=== PATIENT | female | born 1985 ===

== ENCOUNTER 2020-04-15 09:25 | Emergency (ER) | payer OTHER, SELFPAY ==
[2020-04-15 09:36] VITALS: BP 136/83; PULSE 68; RESP 17; TEMP 36.7; O2SAT 99; BMI 36.8
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
== END 2020-04-15 10:20 | disposition home or self-care (01) ==
PROVIDERS: Emergency Provider Internal Medicine; PCP Internal Medicine
DX: S13.4XXA Sprain of ligaments of cervical spine, initial encounter (principal); M54.2 Cervicalgia; V43.52XA Car driver injured in collision with other type car in traffic accident, initial encounter; Y93.9 Activity, unspecified; Y92.410 Unspecified street and highway as the place of occurrence of the external cause; Z79.899 Other long term (current) drug therapy
CPT/HCPCS: 99283

== ENCOUNTER 2020-08-23 09:44 | Outpatient (REF) | payer OTHER, SELFPAY | END 2020-08-23 09:45 | disposition home or self-care (01) | LOC: HO.LAB 09:44 | PROVIDERS: Visit Provider Internal Medicine | DX: Z20.822 Contact with and (suspected) exposure to COVID-19 (principal) | CPT/HCPCS: 36415; C9803; U0003; U0005 ==

== ENCOUNTER 2020-10-01 23:22 | Emergency (ER) | payer OTHER, SELFPAY ==
--- NOTE | ~2020-10-01 | CT_ITS ---
EXAMINATION: CT ABDOMEN AND PELVIS WITHOUT CONTRAST CLINICAL INFORMATION: Right flank pain. COMPARISON: 04/03/2019. TECHNIQUE: Contiguous axial thin section helical images of the abdomen and pelvis were performed without oral or IV contrast. The data set was reformatted in the coronal and sagittal planes and reviewed on an independent workstation. DLP: 856 mGy-cm. FINDINGS: The visualized lung bases are clear. The visualized portions of the heart are unremarkable. The liver is of normal size and diffuse decreased attenuation without focal lesions nor intrahepatic biliary ductal dilation. Patient is status post cholecystectomy. Surgical clips are identified. Surgical chain sutures are noted in this patient status post gastric bypass. The spleen, pancreas, adrenal glands are unremarkable. Both kidneys are of normal size and attenuation. There is right grade 2-3 hydroureteronephrosis secondary to a 5 mm obstructive right UVJ calculus. There is also a 2 mm nonobstructive calculus within the lower pole of the right kidney and a 6 mm nonobstructive calculus within the upper pole of the right kidney. There is no abdominal free fluid. There is neither mesenteric nor retroperitoneal lymphadenopathy. Normal unopacified loops of small and large bowel are identified. There is no pelvic free fluid. The urinary bladder is unremarkable. There is neither pelvic nor inguinal lymphadenopathy. Bone windows: Neither sclerotic nor lytic bone lesions are identified. CT/CT abdomen pelvis wo con IMPRESSION: Right grade 2-3 hydroureteronephrosis secondary to a 5 mm obstructive right UVJ calculus. Additional nonobstructive right renal calculi are present. Hepatic steatosis. Automated exposure control (Care Dose) Adjustment of the mA and/or kv according to patient size (this includes techniques or standardized protocols for targeted exams where dose is matched to indication / reason for exam; i.e. extremities or head).
[2020-10-01 23:25] VITALS: BP 170/92; PULSE 73; RESP 18; TEMP 36.8; O2SAT 96; BMI 38.9
[2020-10-01 23:44] LABS: MANUAL DIFF FLAG NO
[2020-10-01 23:46] LABS: Basophils Percent Auto 0.3 % (0-2); Eosinophils Absolute Auto 0.1 X10*3/uL (0.0-0.4); Eosinophils Percent Auto 0.8 % (0-4); Hematocrit 37.2 % (37-47); Hemoglobin 12.3 g/dl (12.0-16.0); Imm Gran Abs Auto 0.05 X10*3/uL (0.00-0.03); Imm Gran Pct Auto 0.4 % (0.0-0.4); Lymphocytes Absolute Auto 3.7 X10*3/uL (1.2-4.9); Lymphocytes Percent Auto 31.1 % (20-40); Mean Corpuscular HGB Conc 33.1 g/dl (31.0-35.0); Mean Corpuscular Hemoglobin 27.8 pg (27.0-33.0); Mean Corpuscular Volume 84.2 fL (80-98); Monocytes Absolute Auto 0.6 X10*3/uL (0.1-1.2); Monocytes Percent Auto 5.1 % (2-11); Neutrophils Absolute Auto 7.3 X10*3/uL (2.0-8.3); Neutrophils Percent Auto 62.3 % (45-73); Platelet Count 246 X10*3/uL (160-400); Red Blood Count 4.42 X10*6/uL (4.20-5.50); Red Cell Distribution Width 12.8 % (11.0-16.0); White Blood Count 11.8 X10*3/uL (4.8-10.8)
[2020-10-01 23:50] LABS: Glucose Urine UA NEG (NEG); Leukocyte Esterase Urine NEG (NEG); Nitrite Urine NEG (NEG); PH 5.5 (5.0-8.0); Specific Gravity - Urine >= 1.030 (1.005-1.025); Urine Blood 3+ (NEG); Urine Ketones NEG (NEG); Urine Protein NEG (NEG-TRACE)
[2020-10-02] VITALS: PULSE 84; RESP 18; O2SAT 100
[2020-10-02] LABS: Appearance Urine CLEAR; Color Urine YELLOW
[2020-10-02 00:07] LABS: UPreg QC Valid YES; Urine Pregnancy NEGATIVE (NEGATIVE)
[2020-10-02 00:08] LABS: Bacteria Urine TRACE /LPF; Mucus Urine 1+ /LPF; RBC Urine 50-75 /HPF (0); Squamous Epithelial Cell Urine TRACE /LPF; WBC Urine 0-2 /HPF (0-4)
[2020-10-02 00:11] LABS: Alanine Aminotransferase 20 U/L (0-31); Albumin Level 4.1 g/dL (3.5-5.0); Alkaline Phosphatase 82 U/L (39-117); Anion Gap 14 (12-20); Aspartate Amino Transferase 16 U/L (5-31); Bilirubin Total 0.4 mg/dL (0.0-1.0); Blood Urea Nitrogen 15 mg/dL (9-16); Calcium 8.8 mg/dL (8.4-10.2); Carbon Dioxide 25 mmol/L (22-29); Chloride 105 mmol/L (96-108); Creatinine Clr Calc Pharmacy 110.5; Estimated Glomerular Filt Rate > 60; Glucose Random 97 mg/dL (60-115); Potassium 3.7 mmol/L (3.3-5.1); Sodium 140 mmol/L (135-145); Total Protein 7.1 g/dL (6.5-8.0)
--- NOTE | 2020-10-02 00:38 | ED_ITS ---
HPI - General Adult General Chief complaint: General Medical Stated complaint: back pain Time Seen by Provider: 10/02/20 00:17 Source: patient Mode of arrival: ambulatory History of Present Illness HPI narrative: This is a 34-year-old female with history ureterolithiasis who presents with 2 days of constant right flank pain that she states radiates down into the inguinal area and is associated with urinary frequency and some mild nausea. Otherwise, she denies fever, chills, vomiting, diarrhea or urinary pain/burning. She endorses that she was evaluated yesterday at [facility] but they told her that she did not have anything and discharge your. She states that the pain has persisted. Related Data Previous Rx's Medication Instructions Recorded acetaminophen [Tylenol Arthritis 650 mg PO Q8H PRN #30 tab 04/15/20 Pain] cyclobenzaprine 10 mg PO TID PRN #10 tab 04/15/20 lidocaine [Lidoderm] 1 patch TOPICAL DAILY #15 ea 04/15/20 ketorolac 10 mg PO Q6H PRN 5 Days tab 10/02/20 prednisone 20 mg PO DAILY #4 tab 10/02/20 tamsulosin [Flomax] 0.4 mg PO BEDTIME #4 cap 10/02/20 Allergies Allergy/AdvReac Type Severity Reaction Status Date / Time No Known Allergies Allergy Verified 10/01/20 23:25 [No Known Allergies*] Review of Systems Review of Systems: Pertinent positives and negatives as stated in HPI 10 point review of systems is otherwise negative. [facility] Past Medical History Source: nursing notes reviewed Medical History No known health problems Surgical History Gastric bypass status for obesity Social History Social History Alcohol intake: never Smoking Status: Former smoker Use of substances other than those prescribed or required for medical reasons: No Advance Directives: No Physical Exam Vital Signs: Vital Signs: Last Vital Signs Temp 97.3 F 10/02/20 02:00 Pulse 71 10/02/20 02:00 Resp 16 10/02/20 02:00 BP 146/91 H 10/02/20 02:00 Pulse Ox 97 10/02/20 02:00 Body Mass Index 38.9 VITAL SIGNS: Reviewed. GENERAL: Well developed, well nourished, in no acute distress. HEAD: Normocephalic/atraumatic NOSE: Nares patent bilateral OROPHARYNX: no oral lesions noted, posterior pharynx clear NECK: Supple, no adenopathy LUNGS: Normal breath sounds. No adventitious sounds or accessory muscle use. SpO2<96> CARDIOVASCULAR: Regular rate and rhythm without noted murmurs ABDOMEN: Soft, non-tender, non-distended with bowel sounds, no CVA tenderness NEUROLOGIC: Alert and oriented x 4. Course Course Course Narrative: This is a 34-year-old female with history and clinical presentation consistent with ureterolithiasis will evaluate for obstruction and discussed with patient the fact that she would be undergoing an additional exposure of radiation in order to further evaluate her symptoms. She understands and acknowledges the risks and benefits of obtaining a 2nd CT scan. On review of all investigations there is a mild leukocytosis with hematuria and CT scan finding consistent with right grade 2-3 hydro ureteral nephrosis and the findings of a 5 mm stone. Additional nonobstructive renal calculi are also p resent. On re-evaluation after combination analgesics patient reports good resolution of her pain and all results and findings were discussed with her at bedside. She knows that she will be discharged with additional medications to facilitate the passage of the stone and that she should follow-up with urology. Medical Decision Making Lab Data Result diagrams: 10/01/20 23:39 10/01/20 23:39 Labs: Lab Results 10/01/20 10/01/20 10/01/20 Range/Units 23:39 23:39 23:39 WBC 11.8 H (4.8-10.8) X10*3/uL RBC 4.42 (4.20-5.50) X10*6/uL Hgb 12.3 (12.0-16.0) g/dl Hct 37.2 (37-47) % MCV 84.2 (80-98) fL MCH 27.8 (27.0-33.0) pg MCHC 33.1 (31.0-35.0) g/dl RDW 12.8 (11.0-16.0) % Plt Count 246 (160-400) X10*3/uL MPV 11.0 (9.4-12.3) fL Immature Gran % (Auto) 0.4 (0.0-0.4) % Neut % (Auto) 62.3 (45-73) % Lymph % (Auto) 31.1 (20-40) % Bond % (Auto) 5.1 (2-11) % Eos % (Auto) 0.8 (0-4) % Baso % (Auto) 0.3 (0-2) % Lymph # (Auto) 3.7 (1.2-4.9) X10*3/uL [place] # (Auto) 0.6 (0.1-1.2) X10*3/uL Eos # (Auto) 0.1 (0.0-0.4) X10*3/uL Baso # (Auto) 0.0 (0.0-0.2) X10*3/uL Abs Immat Gran (auto) 0.05 H (0.00-0.03) X10*3/uL Absolute Neuts (auto) 7.3 (2.0-8.3) X10*3/uL Absolute Nucleated RBC 0.000 (0.0-0.012) X10*3/uL Nucleated RBC % (auto) 0.0 (0.0-0.2) /100WBC Hold Blue Top SEE NOTE Sodium 140 (135-145) mmol/L Potassium 3.7 (3.3-5.1) mmol/L Chloride 105 (96-108) mmol/L Carbon Dioxide 25 (22-29) mmol/L Anion Gap 14 (12-20) BUN 15 (9-16) mg/dL Creatinine 0.83 (0.5-1.4) mg/dL Estim Creat Clear Calc 110.5 Estimated GFR > 60 Random Glucose 97 (60-115) mg/dL Calcium 8.8 (8.4-10.2) mg/dL Total Bilirubin 0.4 (0.0-1.0) mg/dL AST 16 (5-31) U/L ALT 20 (0-31) U/L Alkaline Phosphatase 82 (39-117) U/L Total Protein 7.1 (6.5-8.0) g/dL Albumin 4.1 (3.5-5.0) g/dL Urine Color Urine Appearance Urine pH (5.0-8.0) Ur Specific [place] (1.005-1.025) Urine Protein (NEG-TRACE) MG/DL Urine Glucose (UA) (NEG) MG/DL Urine Ketones (NEG) MG/DL Urine Blood (NEG) Urine Nitrite (NEG) Ur Leukocyte Esterase (NEG) Urine RBC (0) /HPF Urine WBC (0-4) /HPF Ur Squamous Epith Cells /LPF Urine Bacteria /LPF Urine Mucus /LPF Urine Yeast /HPF Urine Test (NEGATIVE) 10/01/20 10/01/20 Range/Units 23:39 23:39 WBC (4.8-10.8) X10*3/uL RBC (4.20-5.50) X10*6/uL Hgb (12.0-16.0) g/dl Hct (37-47) % MCV (80-98) fL MCH (27.0-33.0) pg MCHC (31.0-35.0) g/dl RDW (11.0-16.0) % Plt Count (160-400) X10*3/uL MPV (9.4-12.3) fL Immature Gran % (Auto) (0.0-0.4) % Neut % (Auto) (45-73) % Lymph % (Auto) (20-40) % Bond % (Auto) (2-11) % Eos % (Auto) (0-4) % Baso % (Auto) (0-2) % Lymph # (Auto) (1.2-4.9) X10*3/uL Bond # (Auto) (0.1-1.2) X10*3/uL Eos # (Auto) (0.0-0.4) X10*3/uL Baso # (Auto) (0.0-0.2) X10*3/uL Abs Immat Gran (auto) (0.00-0.03) X10*3/uL Absolute Neuts (auto) (2.0-8.3) X10*3/uL Absolute Nucleated RBC (0.0-0.012) X10*3/uL Nucleated RBC % (auto) (0.0-0.2) /100WBC Hold Blue Top Sodium (135-145) mmol/L Potassium (3.3-5.1) mmol/L Chloride (96-108) mmol/L Carbon Dioxide (22-29) mmol/L Anion Gap (12-20) BUN (9-16) mg/dL Creatinine (0.5-1.4) mg/dL Estim Creat Clear Calc Estimated GFR Random Glucose (60-115) mg/dL Calcium (8.4-10.2) mg/dL Total Bilirubin (0.0-1.0) mg/dL AST (5-31) U/L ALT (0-31) U/L Alkaline Phosphatase (39-117) U/L Total Protein (6.5-8.0) g/dL Albumin (3.5-5.0) g/dL Urine Color YELLOW Urine Appearance CLEAR Urine pH 5.5 (5.0-8.0) Ur Specific [place] >= 1.030 H (1.005-1.025) Urine Protein NEG (NEG-TRACE) MG/DL Urine Glucose (UA) NEG (NEG) MG/DL Urine Ketones NEG (NEG) MG/DL Urine Blood 3+ H (NEG) Urine Nitrite NEG (NEG) Ur Leukocyte Esterase NEG (NEG) Urine RBC 50-75 H (0) /HPF Urine WBC 0-2 (0-4) /HPF Ur Squamous Epith Cells TRACE /LPF Urine Bacteria TRACE /LPF Urine Mucus 1+ /LPF Urine Yeast TRACE /HPF Urine Test NEGATIVE (NEGATIVE) Discharge Plan Discharge Clinical Impression: Ureterolithiasis Hydronephrosis Qualifiers: Hydronephrosis type: with ureteropelvic junction obstruction Qualified Code(s): Q62.11 - Congenital occlusion of ureteropelvic junction Patient Disposition: Home, Self-Care Instructions: Ureteral Stones (ED) Additional Instructions: 1. Tylenol 1000 mg, orally, every 6 hours as needed for pain control. Do not exceed 4000 mg within 24 hours. 2. You have been provided with a referral to see Urology and you should call their office on Saturday morning. Do not hesitate to return to the emergency department should you experience any acute worsening of symptoms. Prescriptions: New tamsulosin [Flomax] 0.4 mg capsule 0.4 mg PO BEDTIME Qty: 4 RF: 0 ketorolac 10 mg tablet 10 mg PO Q6H PRN (Reason: pain) 5 Days RF: 0 prednisone 20 mg tablet 20 mg PO DAILY Qty: 4 RF: 0 No Action cyclobenzaprine 10 mg tablet 10 mg PO TID PRN (Reason: muscle spasm) Qty: 10 RF: 0 lidocaine [Lidoderm] 5 % adhesive patch,medicated 1 patch topical DAILY Qty: 15 RF: 0 acetaminophen [Tylenol Arthritis Pain] 650 mg tablet extended release 650 mg PO Q8H PRN (Reason: pain) Qty: 30 RF: 0 Referrals: Mona Rodriguez MD [Primary Care Provider] - 2 days Rohit Monique III, MD [Physician] - 2 days (Please evaluate and treat as indicated for hydronephrosis grade 2-3 with reported UVJ stone 5 mm.)
[2020-10-02] MEDS: Acetaminophen 325 MG TABLET 975 MG PO (00:45)
[2020-10-02] MEDS: 0.9 % Sodium Chloride 1,000 ML 999 ML IV (00:46)
[2020-10-02] MEDS: Ketorolac Tromethamine 15 MG/ML VIAL IVPUSH (00:47)
[2020-10-02 02:00] VITALS: BP 146/91; PULSE 71; RESP 16; TEMP 36.3; O2SAT 97
[2020-10-02] MEDS: Tamsulosin HCL 0.4 MG CAPSULE PO (03:27)
== END 2020-10-02 04:09 | disposition home or self-care (01) ==
PROVIDERS: Emergency Provider Student in an Organized Health Care Education/Training Program; PCP Internal Medicine
DX: N13.2 Hydronephrosis with renal and ureteral calculous obstruction (principal)
CPT/HCPCS: 36415; 74176; 80053; 81001; 81003; 81025; 85025; 96361; 96374; 99284; J1885

== ENCOUNTER 2021-03-30 07:56 | Emergency (ER) | payer OTHER, SELFPAY ==
[2021-03-30 09:10] LABS: MANUAL DIFF FLAG NO
[2021-03-30 09:13] LABS: Basophils Percent Auto 0.3 % (0-2); Eosinophils Absolute Auto 0.1 X10*3/uL (0.0-0.4); Eosinophils Percent Auto 0.5 % (0-4); Hematocrit 38.4 % (37-47); Hemoglobin 12.8 g/dl (12.0-16.0); Imm Gran Abs Auto 0.03 X10*3/uL (0.00-0.03); Imm Gran Pct Auto 0.3 % (0.0-0.4); Lymphocytes Absolute Auto 2.4 X10*3/uL (1.2-4.9); Lymphocytes Percent Auto 22.5 % (20-40); Mean Corpuscular HGB Conc 33.3 g/dl (31.0-35.0); Mean Corpuscular Hemoglobin 27.8 pg (27.0-33.0); Mean Corpuscular Volume 83.5 fL (80-98); Mean Platelet Volume 11.6 fL (9.4-12.3); Monocytes Absolute Auto 0.6 X10*3/uL (0.1-1.2); Monocytes Percent Auto 5.5 % (2-11); Neutrophils Absolute Auto 7.5 X10*3/uL (2.0-8.3); Neutrophils Percent Auto 70.9 % (45-73); Platelet Count 224 X10*3/uL (160-400); Red Cell Distribution Width 13.2 % (11.0-16.0); White Blood Count 10.5 X10*3/uL (4.8-10.8)
[2021-03-30 09:29] VITALS: BP 134/85; PULSE 69; RESP 18; TEMP 36.8; O2SAT 99; BMI 39.4
[2021-03-30 09:31] LABS: Alanine Aminotransferase 30 U/L (0-31); Alkaline Phosphatase 77 U/L (39-117); Anion Gap 12 (12-20); Aspartate Amino Transferase 23 U/L (5-31); Bilirubin Direct 0.2 mg/dL (0.0-0.5); Bilirubin Total 0.3 mg/dL (0.0-1.0); Blood Urea Nitrogen 10 mg/dL (9-16); Calcium 9.1 mg/dL (8.4-10.2); Carbon Dioxide 24 mmol/L (22-29); Chloride 106 mmol/L (96-108); Creatinine Clr Calc Pharmacy 130.7; Estimated Glomerular Filt Rate > 60; Glucose Random 95 mg/dL (60-115); Lipase 21 U/L (8-78); Potassium 4.3 mmol/L (3.3-5.1); Sodium 138 mmol/L (135-145)
[2021-03-30] MEDS: Ondansetron ODT 4 MG TAB.RAPDIS TRANSLINGU (09:32)
--- NOTE | 2021-03-30 11:25 | ED.ABDPAIN ---
HPI - Abdominal Pain General Chief Complaint: Abdominal Pain Stated Complaint: QUEST KIDNEY STONE PAIN R SIDE LOWER BACK Time Seen by Provider: 03/30/21 08:42 Source: patient Mode of arrival: ambulatory Limitations: no limitations History of Present Illness HPI narrative: 35 y/o female of kidney stones, s/p gastric bypass who presents to the ER with right flank pain, low back pain that radiates to the front of her abdomen that started last night. She reports the pain feels similar to when she had a kidney stone in the past. She reports having trouble urinating this morning. No blood in her urine. She is nauseated but has not vomited. No fever or chills, no diarrhea, no vaginal discharge or bleeding. Denies chance of . No back injuries. MD elicited complaint: flank pain Pertinent past history: kidney stones Onset (ago): day(s) (1) Pain Consistency: constant Location: R flank Severity: moderate Pain scale (0-10): 7 Quality: stabbing and aching Radiation: RLQ and back Migration to: no migration Exacerbating factors: nothing Relieving factors: nothing Context: history of similar episodes Associated symptoms: nausea Treatments prior to arrival: NSAIDs Related Data Previous Rx's Medication Instructions Recorded acetaminophen 650 mg 650 mg PO Q8H PRN #30 tab 04/15/20 tablet,extended release (Tylenol Arthritis Pain) cyclobenzaprine 10 mg tablet 10 mg PO TID PRN #10 tab 04/15/20 lidocaine 5 % topical patch 1 patch TOPICAL DAILY #15 ea 04/15/20 (Lidoderm) ketorolac 10 mg tablet 10 mg PO Q6H PRN 5 Days tab 10/02/20 prednisone 20 mg tablet 20 mg PO DAILY #4 tab 10/02/20 tamsulosin 0.4 mg capsule (Flomax) 0.4 mg PO BEDTIME #4 cap 10/02/20 Allergies Allergy/AdvReac Type Severity Reaction Status Date / Time No Known Allergies Allergy Verified 03/30/21 09:29 [No Known Allergies*] Review of Systems Review of Systems Constitutional: No Fever, No Chills ENT/Mouth: No sore throat, No Rhinorrhea Cardiovascular: No Chest Pain, No SOB, No Orthopnea, No Edema Respiratory: No Cough, No Sputum, No Wheezing, No dyspnea Gastrointestinal: + Nausea, No Vomiting, No Diarrhea, + abdominal Pain, No Hematochezia, No Melena Genitourinary: No Dysuria, No Urinary Frequency, No Hematuria, +urinary hesitancy Musculoskeletal: No joint pain, No Myalgias Skin: No Skin Lesions, No rash Neuro: No Weakness, No Numbness, No Dizziness, No Headache Heme/Lymph: No Bruising, No Lymphadenopathy Physical Exam Vital Signs: Vital Signs: Last Vital Signs Temp 98.3 F 03/30/21 09:29 Pulse 69 03/30/21 09:29 Resp 18 03/30/21 09:29 BP 134/85 03/30/21 09:29 Pulse Ox 99 03/30/21 09:29 Body Mass Index 39.4 Appearance: Alert. Oriented X3. No acute distress. Eyes: Pupils equal, round and reactive to light. ENT: Pharynx normal. Neck: Normal inspection. Neck supple. CVS: Normal heart rate and rhythm. Pulses normal. Respiratory: No respiratory distress. Breath sounds normal. Abdomen: Soft and nontender. +BS x4. CVA tenderness on the right. No RLQ tenderness. Skin: Skin warm and dry. Normal skin color. Normal skin turgor. No rashes. Extremities: No lower extremity edema. Neuro: Oriented X 3. No motor deficit. No sensory deficit. Course Course Course Narrative: 35 y/o female presenting with right flank and back pain that started last night and radiates into her right lower abdomen. Nontoxic appearing. Labs, UA, and CT scan pending. Nausea improved with SL Zofran given in triage. Reevaluation(s) Reevaluation #1: Patient eloped from the ER prior to CT scan being performed. Labs unremarkable, UA was normal and negative. MDM - Abdominal Pain Lab Data Result diagrams: 03/30/21 08:57 03/30/21 08:57 Labs: Lab Results 03/30/21 03/30/21 03/30/21 Range/Units 08:57 08:57 11:30 WBC 10.5 (4.8-10.8) X10*3/uL RBC 4.60 (4.20-5.50) X10*6/uL Hgb 12.8 (12.0-16.0) g/dl Hct 38.4 (37-47) % MCV 83.5 (80-98) fL MCH 27.8 (27.0-33.0) pg MCHC 33.3 (31.0-35.0) g/dl RDW 13.2 (11.0-16.0) % Plt Count 224 (160-400) X10*3/uL MPV 11.6 (9.4-12.3) fL Immature Gran % (Auto) 0.3 (0.0-0.4) % Neut % (Auto) 70.9 (45-73) % Lymph % (Auto) 22.5 (20-40) % [place] % (Auto) 5.5 (2-11) % Eos % (Auto) 0.5 (0-4) % Baso % (Auto) 0.3 (0-2) % Lymph # (Auto) 2.4 (1.2-4.9) X10*3/uL [place] # (Auto) 0.6 (0.1-1.2) X10*3/uL Eos # (Auto) 0.1 (0.0-0.4) X10*3/uL Baso # (Auto) 0.0 (0.0-0.2) X10*3/uL Abs Immat Gran (auto) 0.03 (0.00-0.03) X10*3/uL Absolute Neuts (auto) 7.5 (2.0-8.3) X10*3/uL Absolute Nucleated RBC 0.000 (0.0-0.012) X10*3/uL Nucleated RBC % (auto) 0.0 (0.0-0.2) /100WBC Sodium 138 (135-145) mmol/L Potassium 4.3 (3.3-5.1) mmol/L Chloride 106 (96-108) mmol/L Carbon Dioxide 24 (22-29) mmol/L Anion Gap 12 (12-20) BUN 10 (9-16) mg/dL Creatinine 0.70 (0.5-1.4) mg/dL Estim Creat Clear Calc 130.7 Estimated GFR > 60 Random Glucose 95 (60-115) mg/dL Calcium 9.1 (8.4-10.2) mg/dL Magnesium 2.0 (1.6-2.6) mg/dL Total Bilirubin 0.3 (0.0-1.0) mg/dL Direct Bilirubin 0.2 (0.0-0.5) mg/dL AST 23 D (5-31) U/L ALT 30 (0-31) U/L Alkaline Phosphatase 77 (39-117) U/L Total Protein 7.0 (6.5-8.0) g/dL Albumin 4.0 (3.5-5.0) g/dL Lipase 21 (8-78) U/L Urine Color YELLOW Urine Appearance HAZY Urine pH 6.0 (5.0-8.0) Ur Specific [place] 1.025 (1.005-1.025) Urine Protein NEG (NEG-TRACE) MG/DL Urine Glucose (UA) NEG (NEG) MG/DL Urine Ketones NEG (NEG) MG/DL Urine Blood NEG (NEG) Urine Nitrite NEG (NEG) Ur Leukocyte Esterase NEG (NEG) Urine Test (NEGATIVE) 03/30/21 Range/Units 11:30 WBC (4.8-10.8) X10*3/uL RBC (4.20-5.50) X10*6/uL Hgb (12.0-16.0) g/dl Hct (37-47) % MCV (80-98) fL MCH (27.0-33.0) pg MCHC (31.0-35.0) g/dl RDW (11.0-16.0) % Plt Count (160-400) X10*3/uL MPV (9.4-12.3) fL Immature Gran % (Auto) (0.0-0.4) % Neut % (Auto) (45-73) % Lymph % (Auto) (20-40) % [place] % (Auto) (2-11) % Eos % (Auto) (0-4) % Baso % (Auto) (0-2) % Lymph # (Auto) (1.2-4.9) X10*3/uL [place] # (Auto) (0.1-1.2) X10*3/uL Eos # (Auto) (0.0-0.4) X10*3/uL Baso # (Auto) (0.0-0.2) X10*3/uL Abs Immat Gran (auto) (0.00-0.03) X10*3/uL Absolute Neuts (auto) (2.0-8.3) X10*3/uL Absolute Nucleated RBC (0.0-0.012) X10*3/uL Nucleated RBC % (auto) (0.0-0.2) /100WBC Sodium (135-145) mmol/L Potassium (3.3-5.1) mmol/L Chloride (96-108) mmol/L Carbon Dioxide (22-29) mmol/L Anion Gap (12-20) BUN (9-16) mg/dL Creatinine (0.5-1.4) mg/dL Estim Creat Clear Calc Estimated GFR Random Glucose (60-115) mg/dL Calcium (8.4-10.2) mg/dL Magnesium (1.6-2.6) mg/dL Total Bilirubin (0.0-1.0) mg/dL Direct Bilirubin (0.0-0.5) mg/dL AST (5-31) U/L ALT (0-31) U/L Alkaline Phosphatase (39-117) U/L Total Protein (6.5-8.0) g/dL Albumin (3.5-5.0) g/dL Lipase (8-78) U/L Urine Color Urine Appearance Urine pH (5.0-8.0) Ur Specific [place] (1.005-1.025) Urine Protein (NEG-TRACE) MG/DL Urine Glucose (UA) (NEG) MG/DL Urine Ketones (NEG) MG/DL Urine Blood (NEG) Urine Nitrite (NEG) Ur Leukocyte Esterase (NEG) Urine Test NEGATIVE (NEGATIVE) Critical Care Time Critical Care Time Critical Care Time: No Discharge Plan Discharge Clinical Impression: Back pain Qualifiers: Back pain location: low back pain Chronicity: acute Back pain laterality: right Sciatica presence: without sciatica Qualified Code(s): M54.5 - Low back pain Patient Disposition: Elopement Prescriptions: No Action cyclobenzaprine 10 mg tablet 10 mg PO TID PRN (Reason: muscle spasm) Qty: 10 RF: 0 lidocaine [Lidoderm] 5 % adhesive patch,medicated 1 patch topical DAILY Qty: 15 RF: 0 acetaminophen [Tylenol Arthritis Pain] 650 mg tablet extended release 650 mg PO Q8H PRN (Reason: pain) Qty: 30 RF: 0 tamsulosin [Flomax] 0.4 mg capsule 0.4 mg PO BEDTIME Qty: 4 RF: 0 ketorolac 10 mg tablet 10 mg PO Q6H PRN (Reason: pain) 5 Days RF: 0 prednisone 20 mg tablet 20 mg PO DAILY Qty: 4 RF: 0 Interventions: ED Discharge Assessment Last Done: 03/30/21 13:11 Discharge Date/Time: 03/30/21 13:11 [facility] Past Medical History Attestation statement: The following information was validated with the patient. Medical History No known health problems Surgical History Gastric bypass status for obesity Social History Social History Alcohol intake: never Advance Directives: Yes Advance Directives Information Provided: No Advance Directives on File: No Patient : No
[2021-03-30 11:59] LABS: Appearance Urine HAZY; Color Urine YELLOW; Glucose Urine UA NEG (NEG); Leukocyte Esterase Urine NEG (NEG); Nitrite Urine NEG (NEG); Specific Gravity - Urine 1.025 (1.005-1.025); Urine Blood NEG (NEG); Urine Ketones NEG (NEG); Urine Protein NEG (NEG-TRACE)
[2021-03-30 12:01] LABS: UPreg QC Valid YES; Urine Pregnancy NEGATIVE (NEGATIVE)
--- NOTE | 2021-03-30 13:10 | PC.NURSE ---
pt left room without notifying staff. was not there for ct scan either.
== END 2021-03-30 13:11 | disposition left against medical advice (07) ==
PROVIDERS: Emergency Provider Emergency Medicine; PCP Internal Medicine
DX: M54.5 Low back pain (principal); R10.31 Right lower quadrant pain; Z79.899 Other long term (current) drug therapy; Z98.84 Bariatric surgery status
CPT/HCPCS: 36415; 80048; 80076; 81003; 81025; 83690; 83735; 85025; 99283

== ENCOUNTER 2021-11-02 10:39 | Outpatient (REF) | payer OTHER, SELFPAY ==
[2021-11-02 11:40] LABS: Estimated Average Glucose 108 mg/dL; Hemoglobin A1C 121.9665 umol/L; Hemoglobin A1c % 5.4 %
[2021-11-02 12:22] LABS: Erythrocyte Sedimentation Rate 38 MM/HR (0-20)
[2021-11-02 12:47] LABS: Cholesterol 115 mg/dL; HDL Cholesterol 65 mg/dL; LDL Cholesterol Calculated 45 mg/dl; Triglycerides 29 mg/dL
[2021-11-02 13:11] LABS: Protein/Creatinine Ratio, Ur 0.12 (<0.2); Total Protein Urine Random 21 mg/dL (<12)
[2021-11-06 18:41] LABS: Lyme Abs Screen <0.90 index
== END 2021-11-02 10:40 | disposition home or self-care (01) ==
LOC: HO.LAB 10:39
PROVIDERS: PCP Internal Medicine; Visit Provider Internal Medicine
DX: F31.70 Bipolar disorder, currently in remission, most recent episode unspecified (principal); I10 Essential (primary) hypertension; M13.0 Polyarthritis, unspecified
CPT/HCPCS: 36415; 80061; 83036; 84156; 85652; 86617; 86618

== ENCOUNTER → 2021-11-14 10:34 | Outpatient (BNVA) | payer OTHER, SELFPAY | PROVIDERS: PCP Internal Medicine | DX: N20.0 Calculus of kidney (principal) | CPT/HCPCS: 99202 ==

== ENCOUNTER → 2022-02-08 10:10 | Outpatient (BNVA) | payer OTHER, SELFPAY | PROVIDERS: PCP Internal Medicine | DX: N20.0 Calculus of kidney (principal) | CPT/HCPCS: 99212 ==

== ENCOUNTER 2022-02-12 13:52 | Day surgery (SDC) | payer OTHER, SELFPAY ==
--- NOTE | ~2022-02-12 | FL_ITS ---
EXAMINATION: XR FLUOROSCOPY WITH IMAGES CLINICAL INFORMATION: Cystoscopy and right ureteroscopy COMPARISON: Previous CT of the abdomen and pelvis September 2020 TECHNIQUE: Fluoroscopy performed by Dr. Ozzie Musa. Fluoroscopy time: 0.9 minutes. Cumulative Dose: 26 mGy. Images: 3. FINDINGS: There is question of narrowing and irregularity of the right proximal ureter seen on a single image, the first submitted image. Later images demonstrate placement of a right internal ureteral stent in satisfactory position.. FL/FL guidance in OR IMPRESSION: Fluoroscopic guidance for urologic procedure.
[2022-02-12 14:05] VITALS: BMI 38.7
[2022-02-12 14:10] VITALS: BP 135/71; PULSE 83; RESP 16; TEMP 36.2; O2SAT 97
[2022-02-12 14:22] LABS: UPreg QC Valid YES; Urine Pregnancy NEGATIVE (NEGATIVE)
[2022-02-12] MEDS: Lactated Ringers 1,000 ML 80 ML IVCONT (14:22)
--- NOTE | 2022-02-12 15:07 | HO.ANESPROP2 ---
HPI - Anesthesia Eval Consult details Narrative: 36 F for cysto and possible stent back pain, RA ( neck not affected as per patient , full range of motion ) , anxiety , Obesity PMFSH Active Problems Active Problems: All Active Problems (Updated 02/12/22 @ 14:01 by Giuliana Monzon RN) Renal calculi (Acute) Past Medical History Medical History (Updated 02/12/22 @ 14:01 by Giuliana Monzon RN) HTN (hypertension) No known health problems Renal calculi Family History Family history of problems with anesthesia: No Surgical History Surgical History Gastric bypass status for obesity History of Problems with Anesthesia: No Social History Social History Alcohol intake: never Patient Tobacco Use Status: Never used Tobacco Use of substances other than those prescribed or required for medical reasons: No Are you DNR?: No Advance Directives: No Advance Directives Information Provided: Yes Recently lost weight without trying: No Nutrition Risks: No Nutritional Risk Meds Allergies Allergy/AdvReac Type Severity Reaction Status Date / Time No Known Allergies Allergy Verified 02/08/22 08:21 [No Known Allergies*] Home Medications Medication Instructions Recorded Confirmed Last Taken Type diclofenac sodium 1 % topical gel 4 g topical QID 11/14/21 Unknown History etonogestrel 0.12 mg-ethinyl vag ring vaginal 11/14/21 Unknown History estradiol 0.015 mg/24 hr vaginal ring lamotrigine 25 mg tablet 25 mg PO BID 11/14/21 Unknown History losartan 50 mg-hydrochlorothiazide 1 tab PO DAILY 11/14/21 02/12/22 History 12.5 mg tablet prazosin 1 mg capsule 1 mg PO BEDTIME 11/14/21 Unknown History sertraline 50 mg tablet 50 mg PO DAILY 11/14/21 Unknown History hydroxychloroquine 200 mg tablet 200 mg PO BID 02/08/22 Unknown History Exam Exam Date and Time: February 12, 2022 1507 Height,Weight and Vital Signs: Height 5 ft 4 in Weight 102.512 kg Last Vital Signs Temp 97.2 F 02/12/22 14:10 Pulse 83 02/12/22 14:10 Resp 16 02/12/22 14:10 BP 135/71 02/12/22 14:10 Pulse Ox 97 02/12/22 14:10 O2 Del Method 02/12/22 14:10 Pertinent Lab Results Pertinent Lab Results: Laboratory Tests 02/12/22 13:58 Urine Test NEGATIVE Airway Mallampati Class: III TM Dist: >3cm Neck ROM: Full Loose/Missing/Broken Teeth: Yes (Fillings) Heart: S1,S2 Lungs: b/l breath sounds Assessment and Plan Assessment Anesthesia Assessment: Anesthesia Plan Discussed and Chart Reviewed Final Anesthetic Review Family History of Problems with Anesthesia: No History of Problems with Anesthesia: No NPO: Yes ASA Class: III Final Preanesthetic Review: Meds/Allgs Chart Reviewed, Consent Obtained/Reviewed and Anes Risks/Benef Reviewed Patient Risk: Intermediate Procedure Risk: Intermediate Anesthetic Plan Anesthetic Plan: GA Disposition: Standard PACU
[2022-02-12] MEDS: levoFLOXacin 500 MG TABLET PO (16:20)
--- NOTE | 2022-02-12 16:33 | P.HPSUR_ITS ---
Pre-Procedural Eval Section A Date of Service: 02/12/22 The patient is an INPATIENT: No Changes since office visit: No Cold of Flu in the past 2 weeks, No New Medical Problems, No Changes in Medication and No Patient answered all questions The History & Physical has been completed within 30 days and I have reviewed it.: Yes Section B Chief Complaint: Calculus of kidney Details of Present Illness: right retrograde ureteroscopy ureteroscopy laser and stent Relevant Family History (Specify if Yes): No Relevant Social History: None Present Medications: see Short Stay Collaborative assessment Medical History: No relevant PMH History of Previous Operations: Relevant previous surgery/procedure and date(s) Allergies: Allergies Allergy/AdvReac Type Severity Reaction Status Date / Time No Known Allergies Allergy Verified 02/08/22 08:21 [No Known Allergies*] Review of Systems Sugical H&P ROS: Negative: Constitution, Cardiovascular, Respiratory, Neurologi ileana, Psychiatric, Hem-Onc, Allergic/Immunologic, Gastrointestinal, Genitourinary, Musculoskeletal, Integumentary, Endocrine and Eyes/Ears/Nose/Throat Exam Surgical H&P Exam: Normal: HEENT, Normal: Heart, Normal: Lungs, Normal: Extremities, Normal: Abdomen, Normal: Skin and Normal: Neurological Plan Diagnosis/Plan: Unchanged I have reviewed the history and physical and performed a pertinent physical examination on my patient. No changes have occurred unless specified.
[2022-02-12 17:36] VITALS: BP 144/90; PULSE 90; RESP 18; TEMP 36.2; O2SAT 98
--- NOTE | 2022-02-12 17:38 | W.PM.OPN ---
Operative Note Operative Note Date of Service: 02/12/22 Narrative: PreOperative Diagnosis: right proximal ureteric stone Post Operative Diagnosis: right proximal ureteric stone Procedure: - cystoscopy, right retrograde - right dilatation of ureteric orifice under fluoroscopy - placement of ureteric sheath with suction - right ureteroscopy, laser lithotripsy - right stent placement Surgeon: Dr Ozzie Musa Anesthesia: General Indications for procedure: persistent pain right side. Imaging with right ureteric /kidney stone Procedure: After informed consent was verified patient was brought to the operating placed in supine position. Anesthesia was administered per protocol. Patient was placed in modified dorsal lithotomy position and prepped and draped in a sterile fashion. Safety pause time-out and side of surgery confirmed. Antibiotics confirmed. A 22 [place]e cystoscope was inserted per urethra. Bladder was normal in its entirety. Both ureteric orifices were in normal position. The right ureteric orifice was cannulated and a retrograde examination was performed. filling defects seen in proximal 3rd of right ureter . A Sensor guidewire was placed up to the level of the renal pelvis under fluoroscopy. The rigid cystoscope was removed. cannula from a flexible access sheath was used to dilate the right ureteric orifice. A access sheath was placed under fluoroscopy up to the level of the stone. The Sensor guidewire was removed. The semi rigid ureteral scope was placed Through the 12 [place]e access sheath tele stone was encountered. In flow and suction were adjusted to balance. Using a 360 holmium fiber the stone was dusted and fragments were brought through the sheath into the catch basket. When completed the sheath and scope were removed. This was done after the Sensor wire was placed back in the kidney. A 6 [place]e by Twenty-four cm double-J stent was placed into the renal pelvis and bladder under a combination of fluoroscopy and direct visualization. The bladder was emptied. The patient tolerated the procedure well and was extubated in the operating room, and transferred in stable condition to the recovery area. Pathology: stones Drains: 6 x 24 cm double-J stent
[2022-02-12 17:41] VITALS: BP 149/93; PULSE 85; RESP 18; O2SAT 94
[2022-02-12 17:46] VITALS: BP 140/92; PULSE 85; RESP 16; O2SAT 95
[2022-02-12] MEDS: Phenazopyridine HCL 100 MG TABLET PO (17:47)
[2022-02-12 17:51] VITALS: BP 145/88; PULSE 76; RESP 16; O2SAT 95
[2022-02-12 18:06] VITALS: BP 142/86; PULSE 70; RESP 16; TEMP 36.3; O2SAT 95
[2022-02-15 23:11] LABS: Stone Source RIGHT URETERAL STONE
== END 2022-02-12 18:13 | disposition home or self-care (01) ==
PROVIDERS: PCP Urology; Visit Provider Urology
PROC: (CPT 52356; principal; 2022-02-12 15:40)
DX: N20.1 Calculus of ureter (principal); I10 Essential (primary) hypertension; Z98.84 Bariatric surgery status; Z79.899 Other long term (current) drug therapy
CPT/HCPCS: 52356; 81025; 82365; 88300; C1758; C1769; C2617; J1100; J2250; J2405; J3010; Q9967

== ENCOUNTER → 2022-02-21 14:32 | Outpatient (BNVA) | payer OTHER, SELFPAY | PROVIDERS: PCP Internal Medicine; Visit Provider Urology | DX: Z48.816 Encounter for surgical aftercare following surgery on the genitourinary system (principal) | CPT/HCPCS: 52000; 52310; 99212 ==

== ENCOUNTER 2022-08-03 14:01 | Outpatient (REF) | payer OTHER, SELFPAY ==
--- NOTE | ~2022-08-03 | US_ITS ---
EXAMINATION: US RETROPERITONEAL LIMITED (RENAL ONLY) CLINICAL INFORMATION: Calculus of kidney. COMPARISON: CT abdomen and pelvis 10/02/2020. X-ray abdomen 06/11/2018. Ultrasound abdomen complete 03/05/2018. TECHNIQUE: Real-time imaging of the kidneys. FINDINGS: RIGHT KIDNEY: 11.6 x 5.9 x 5.4 cm (SAG x AP x TRV). The kidney is normal in size, contour, and echogenicity. Renal cortical thickness is normal. No focal parenchymal lesions or hydronephrosis. Midpole nonobstructing 5 mm stones. LEFT KIDNEY: 10.9 x 5.3 x 5.0 cm (SAG x AP x TRV). The kidney is normal in size, contour, and echogenicity. Renal cortical thickness is normal. No calculi or focal parenchymal lesions. No hydronephrosis. US/US renal BI IMPRESSION: Nonobstructing right renal nephrolithiasis. No hydronephrosis.
== END 2022-08-03 14:02 | disposition home or self-care (01) ==
LOC: HO.US 14:01
PROVIDERS: PCP Internal Medicine; Visit Provider Urology
DX: N20.0 Calculus of kidney (principal)
CPT/HCPCS: 76775

== ENCOUNTER → 2022-08-16 11:17 | Outpatient (BNVA) | payer OTHER, SELFPAY | PROVIDERS: PCP Internal Medicine; Visit Provider Urology | DX: Z13.89 Encounter for screening for other disorder (principal) ==

== ENCOUNTER 2022-09-17 11:03 | Outpatient (REF) | payer OTHER, SELFPAY ==
[2022-09-17 13:39] LABS: MANUAL DIFF FLAG NO
[2022-09-17 14:03] LABS: Basophils Absolute Auto 0.1 X10*3/uL (0.0-0.2); Basophils Percent Auto 0.6 % (0-2); Eosinophils Absolute Auto 0.1 X10*3/uL (0.0-0.4); Eosinophils Percent Auto 0.5 % (0-4); Hematocrit 36.5 % (37.0-47.0); Hemoglobin 12.3 g/dl (12.0-16.0); Imm Gran Abs Auto 0.04 X10*3/uL (0.00-0.03); Imm Gran Pct Auto 0.4 % (0.0-0.4); Lymphocytes Percent Auto 29.2 % (20-40); Mean Corpuscular HGB Conc 33.7 g/dl (31.0-35.0); Mean Platelet Volume 12.9 fL (9.4-12.3); Monocytes Absolute Auto 0.5 X10*3/uL (0.1-1.2); Monocytes Percent Auto 5.2 % (2-11); Neutrophils Absolute Auto 6.5 x10*3/uL (2.0-8.3); Neutrophils Percent Auto 64.1 % (45-73); Platelet Count 179 X10*3/uL (160-400); Red Cell Distribution Width 12.5 % (11.0-16.0); White Blood Count 10.2 X10*3/uL (4.8-10.8)
[2022-09-17 14:15] LABS: Alanine Aminotransferase 21 U/L (0-31); Alkaline Phosphatase 62 U/L (39-117); Anion Gap 13 (12-20); Aspartate Amino Transferase 19 U/L (5-31); Bilirubin Total 0.3 mg/dL (0.0-1.0); Blood Urea Nitrogen 14 mg/dL (9-16); Calcium 9.4 mg/dL (8.4-10.2); Carbon Dioxide 29 mmol/L (22-29); Chloride 103 mmol/L (96-108); Cholesterol 96 mg/dL; Estimated Glomerular Filt Rate > 60; Glucose Fasting 87 mg/dL (60-99); HDL Cholesterol 58 mg/dL; LDL Cholesterol Calculated 33 mg/dl; Potassium 4.6 mmol/L (3.3-5.1); Sodium 140 mmol/L (135-145); Total Protein 6.9 g/dL (6.5-8.0); Triglycerides 26 mg/dL
== END 2022-09-17 11:04 | disposition home or self-care (01) ==
LOC: HO.10HDL 11:03
PROVIDERS: Visit Provider Internal Medicine
DX: Z00.00 Encounter for general adult medical examination without abnormal findings (principal); F31.70 Bipolar disorder, currently in remission, most recent episode unspecified; F40.01 Agoraphobia with panic disorder; I10 Essential (primary) hypertension
CPT/HCPCS: 36415; 80053; 80061; 85025

== ENCOUNTER 2024-04-07 07:45 | Outpatient (REF) | payer OTHER, SELFPAY ==
[2024-04-07 08:01] LABS: MANUAL DIFF FLAG NO
[2024-04-07 08:19] LABS: Basophils Percent Auto 0.4 % (0-2); Eosinophils Absolute Auto 0.1 X10*3/uL (0.0-0.4); Eosinophils Percent Auto 0.8 % (0-4); Hematocrit 36.2 % (37.0-47.0); Hemoglobin 12.4 g/dl (12.0-16.0); Imm Gran Abs Auto 0.03 X10*3/uL (0.00-0.03); Imm Gran Pct Auto 0.3 % (0.0-0.4); Lymphocytes Absolute Auto 2.5 X10*3/uL (1.2-4.9); Lymphocytes Percent Auto 27.8 % (20-40); Mean Corpuscular HGB Conc 34.3 g/dl (31.0-35.0); Mean Corpuscular Hemoglobin 28.4 pg (27.0-33.0); Mean Platelet Volume 10.8 fL (9.4-12.3); Monocytes Absolute Auto 0.4 X10*3/uL (0.1-1.2); Monocytes Percent Auto 4.7 % (2-11); Platelet Count 267 X10*3/uL (160-400); Red Blood Count 4.36 X10*6/uL (4.20-5.50); Red Cell Distribution Width 12.7 % (11.0-16.0); White Blood Count 9.2 X10*3/uL (4.8-10.8)
[2024-04-07 09:02] LABS: Alanine Aminotransferase 19 U/L (0-31); Albumin Level 3.8 g/dL (3.5-5.0); Alkaline Phosphatase 66 U/L (39-117); Anion Gap 12 (12-20); Aspartate Amino Transferase 20 U/L (5-31); Bilirubin Total 0.3 mg/dL (0.0-1.0); Blood Urea Nitrogen 10 mg/dL (9-16); Calcium 9.4 mg/dL (8.4-10.2); Carbon Dioxide 28 mmol/L (22-29); Chloride 106 mmol/L (96-108); Estimated Glomerular Filt Rate > 60; Glucose Random 108 mg/dL (60-115); Potassium 3.7 mmol/L (3.3-5.1); Sodium 142 mmol/L (135-145); Total Protein 7.2 g/dL (6.5-8.0)
[2024-04-07 09:19] LABS: Thyroid Stimulating Hormone 2.98 uIU/mL (0.32-4.0)
[2024-04-08 11:13] LABS: Hepatitis B Viral DNA Qn - cp NOT DETECTED Log IU/mL (NOT DETECTED); Hepatitis B Viral DNA Qn-IU/mL NOT DETECTED (NOT DETECTED)
[2024-04-08 13:23] LABS: Mumps Virus IgG Antibody <9.00 AU/mL; Rubeola IgG (Measles) <13.50 AU/mL
[2024-04-08 17:53] LABS: Rubella IgG Antibody 1.72 Index
[2024-04-10 04:43] LABS: TS Negative Control Passed; TS Panel A 0; TS Panel B 0; TS Positive Control Passed; TSpotTB Negative (Negative)
== END 2024-04-07 07:46 | disposition home or self-care (01) ==
LOC: HO.LAB 07:45
PROVIDERS: PCP Internal Medicine; Visit Provider Internal Medicine
DX: Z00.00 Encounter for general adult medical examination without abnormal findings (principal); F31.70 Bipolar disorder, currently in remission, most recent episode unspecified; I10 Essential (primary) hypertension; M12.30 Palindromic rheumatism, unspecified site
CPT/HCPCS: 36415; 80053; 84443; 85025; 86481; 86735; 86762; 86765; 87517

== ENCOUNTER 2024-04-14 07:39 | Emergency (ER) | payer OTHER, SELFPAY ==
--- NOTE | ~2024-04-14 | XR_ITS ---
EXAMINATION: XR CHEST CLINICAL INFORMATION: Cough COMPARISON: Chest radiograph from 06/11/2018 TECHNIQUE: Frontal view of the chest was obtained. FINDINGS: No focal consolidation. No pneumothorax. Trachea is midline. Cardiac mediastinal silhouette is not enlarged. No large pleural effusion. Osseous structures are intact. Soft tissues are unremarkable. Surgical material left upper abdomen. XR/XR chest 1V IMPRESSION: No acute cardiopulmonary process. Electronically signed by: Pete Quintero MD 04/14/2024 01:15 PM EDT
[2024-04-14 07:46] VITALS: BP 117/80; PULSE 85; RESP 18; TEMP 36.9; O2SAT 98; BMI 34.9
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
[2024-04-14 09:56] LABS: Influenza A PCR NEGATIVE (Negative); Influenza B PCR NEGATIVE (Negative); Resp Syncy Virus RNA Qual PCR NEGATIVE (Negative); SARS COV2 PCR INHOUSE NEGATIVE (Negative)
[2024-04-14] MEDS: Ketorolac Tromethamine 15 MG/ML VIAL IM (11:13)
[2024-04-14 11:23] VITALS: BP 117/80; PULSE 85; RESP 18; TEMP 36.9; O2SAT 98
== END 2024-04-14 11:24 | disposition home or self-care (01) ==
PROVIDERS: Emergency Provider Emergency Medicine; PCP Internal Medicine
DX: M79.10 Myalgia, unspecified site (principal); R05.9 Cough, unspecified; R07.81 Pleurodynia; Z03.818 Encounter for observation for suspected exposure to other biological agents ruled out; Z79.899 Other long term (current) drug therapy
CPT/HCPCS: 0241U; 71045; 96372; 99283; 99284; J1885

== ENCOUNTER 2024-06-10 09:35 | Outpatient (REF) | payer OTHER, SELFPAY ==
[2024-06-10 12:16] LABS: HBS Num1 0.22 mIU/mL (0-7.99); HBsAGNum1 0.48 S/CO (0.00-0.99); Hepatitis B Core Antibody Nonreactive (Nonreactive); Hepatitis B Surface Antigen Negative (Negative); ~Hepatitis B Surface Antibody NONREACTIVE (Nonreactive)
== END 2024-06-10 09:36 | disposition home or self-care (01) ==
LOC: HO.10HDL 09:35
PROVIDERS: Visit Provider Internal Medicine
DX: Z00.00 Encounter for general adult medical examination without abnormal findings (principal); E66.9 Obesity, unspecified; M12.30 Palindromic rheumatism, unspecified site; I10 Essential (primary) hypertension
CPT/HCPCS: 36415; 86704; 86706; 87340